=== PATIENT | female | born 1970 | race Caucasian/White ===

== ENCOUNTER 2016-08-01 18:04 | Emergency (ER) | payer SELFPAY ==
[~2016-08-01] VITALS: Ht 157.5 cm; Wt 70.0 kg
[~2016-08-01 18:04] MED LIST: CLON1 PO; HYDR-3580 PO; OSTETAB13 PO; PROZ40CA PO; SYNT25TA PO
[2016-08-01 18:05] VITALS: BP 132/80; PULSE 106; RESP 14; TEMP 98.5; O2SAT 97
[2016-08-01] MEDS ORDERED: LEVO25TA4 PO (19:34)
[2016-08-01] MEDS ORDERED: DOXE100C4 PO (19:34)
[2016-08-01] MEDS ORDERED: SERO100T PO (19:34)
[2016-08-01] MEDS ORDERED: SERO50TA PO (19:34)
[2016-08-01] MEDS ORDERED: TETANUS/DIPHTHERIA TOXOID ADULT 0.5 ML VIAL IM ONE (20:15)
[2016-08-01] MEDS ORDERED: SULFAMETHOXAZOLE-TRIMETHOPRIM DS 800-160 MG TAB PO ONE (20:15)
[2016-08-01] MEDS ORDERED: BACITRACIN TOP OINT 15 GM TUBE TOP ONE (20:15)
[2016-08-01] MEDS ORDERED: NAPROXEN 500 MG TAB PO ONE (20:15)
[2016-08-01] MEDS ORDERED: ACETAMINOPHEN/HYDROcodone 325 MG/5 MG TAB PO ONE (20:15)
[2016-08-01] MEDS ORDERED: BACITRACIN OINT 0.9 GM PKT TOP ONE ×2 (20:30)
--- NOTE | 2016-08-01 21:22 | PD ---
HPI Chief Complaint: Skin Problem Time Seen by Provider: 20:00 Travel History International Travel<30 days: No Contact w/Intl Traveler<30days: No Traveled to known affect area: No History of Present Illness HPI Patient comes in complaining of a painful sore on her left upper buttocks ongoing for approximately a week. Patient states that occasionally has yellowish discharge. Patient reports is painful to palpation. Patient has been placing Neosporin on it however does not feels getting any better. Patient denies any known injury, fevers, nausea, vomiting, numbness or tingling anywhere, abdominal pain, loss or change in bowel or bladder, or radiation of the pain. Patient states she does not sit around and is active and works. PFSH Past Medical History Cardiovascular Problems: Yes ?: Not Social History Alcohol Use: Yes Tobacco Use: Yes Substance Use: No Allergies-Medications (Allergen,Severity, Reaction): Coded Allergies: Morphine (Verified Allergy, Intermediate, RASH, 10/22/12) Percocet (Verified Allergy, Intermediate, RASH, 10/22/12) Reported Meds & Prescriptions Reported Meds & Active Scripts Active Diclofenac Sodium DR (Diclofenac Sodium) 75 Mg Tabdr 75 Mg PO Q12HR Bactroban Topical (Mupirocin) 2% Oint 1 Appl TOPICAL BID Bactrim DS (Sulfamethoxazole-Trimethoprim) 800-160 Mg Tab 1 Tab PO BID Reported Levothyroxine (Levothyroxine Sodium) 25 Mcg Tab 25 Mcg PO DAILY Doxepin (Doxepin HCl) 100 Mg Cap 100 Mg PO HS Seroquel (Quetiapine Fumarate) 100 Mg Tab 100 Mg PO HS Seroquel (Quetiapine Fumarate) 50 Mg Tab 50 Mg PO AC BREAKFAST Review of Systems Except as stated in HPI: all other systems reviewed are Neg Physical Exam Narrative GENERAL: Well-developed, well nourished, in no acute distress, and non-ill appearing. SKIN: Warm and dry. Patient has what appears to be a stage II pressure ulcer noted left upper buttocks there is no drainage. It is scabbed over. There is no surrounding cellulitis. It is nonfluctuant and without crepitus. There is no induration. There are no other signs of infection. Exam was performed with presence of staff development coordinatorROSIBEL Hughes at all times. HEAD: Atraumatic. Normocephalic. EYES: Pupils equal and round. EOMI. No scleral icterus. No injection or drainage. ENT: No nasal bleeding or discharge. Mucous membranes pink and moist. NECK: Trachea midline. Supple. No nuclear rigidity. RESPIRATORY: No accessory muscle use. No respiratory distress. MUSCULOSKELETAL: No obvious deformities. No clubbing. No cyanosis. No edema. Full range of motion. NEUROLOGICAL: Awake and alert. No obvious cranial nerve deficits. Motor grossly within normal limits. Normal speech. PSYCHIATRIC: Appropriate mood and affect; insight and judgment normal. Data Data Last Documented VS Vital Signs Date Time Temp Pulse Resp B/P Pulse Ox O2 Delivery O2 Flow Rate FiO2 08/01/16 18:05 98.5 106 14 132/80 97 Room Air Orders Bacitracin Oint (Baciguent Oint) (08/01/16 20:15) Sulfamet-Trimeth Ds 800-160 Mg (Bactrim (08/01/16 20:15) Wound Care (08/01/16 20:07) Tetanus/Diphtheria Tox Adult (Tetanus/Di (08/01/16 20:15) Mandatory Outpatient Referral (08/01/16 20:07) Acetamin-Hydrocod 325-5 Mg ([place] 5-325 (08/01/16 20:15) Naproxen (Naprosyn) (08/01/16 20:15) Bacitracin Oint Packet (Bacitracin Oint (08/01/16 20:30) MDM Medical Decision Making Medical Screen Exam Complete: Yes Emergency Medical Condition: Yes Differential Diagnosis Abscess, cellulitis, wound infection, pressure ulcer, other Narrative Course Patient in no obvious distress upon re-evaluation. Patient was asked if they wanted to speak to my attending, which the patient did not wish to do at this time. Any questions/concerns in reference to patient diagnosis/condition discussed and clarified prior to patient's discharge. Reinforced sheer importance of close follow up with patient's primary physician or primary care clinic. Instructed patient to return to ED immediately, if symptoms return/ worsen. Pt showed understanding of above instructions. Further instructions and recommendations were detailed in discharge paperwork. Pt ambulated without difficulty out of ED at discharge. Diagnosis Primary Impression: Pressure ulcer Qualified Code: L89.322 - Decubitus ulcer of left buttock, stage 2 Referrals: [facility] Patient Instructions: General Instructions, How to Prevent Pressure Ulcers (ED) , Pressure Ulcer (ED) Additional Instructions: Follow-up with your primary care physician 3-5 days for evaluation. Follow-up with wound care 1-2 days for reevaluation. Take all medication as prescribed. Keep wound dry and clean as possible using soap and water. Return to the emergency department if symptoms get worse. Med/Other Pt SpecificInfo: Prescription(s) given Scripts Diclofenac Sodium DR 75 Mg Tabdr75 Mg PO Q12HR #14 TAB Ref 0 Prov:nAnel Canales MD 08/01/16 Mupirocin Topical (Bactroban Topical)2% Oint1 Appl TOPICAL BID #1 TUBE Ref 0 Prov:Annel Canales MD 08/01/16 Sulfamethoxazole-Trimethoprim (Bactrim DS)800-160 Mg Tab1 Tab PO BID #20 TAB Ref 0 Prov:Annel Canales MD 08/01/16 Disposition: 01 DISCHARGE HOME Condition: Stable Margarito Rendon Aug 01, 2016 21:22
[2016-08-01] MEDS ORDERED: DICL75TA PO (21:23)
[2016-08-01] MEDS ORDERED: BACT2OIN TOPICAL (21:23)
[2016-08-01] MEDS ORDERED: BACT800T5 PO (21:23)
== END 2016-08-01 21:28 | disposition home or self-care (01) ==
LOC: NEPB 18:04
DX: L89.322 Pressure ulcer of left buttock, stage 2 (principal); Z72.0 Tobacco use; Z23 Encounter for immunization
CPT/HCPCS: 90471; 90714